=== PATIENT | female | born 1985 | race Caucasian/White ===

== ENCOUNTER → 2021-11-10 | Outpatient (CLI) | LOC: LABNPT 15:33 | PROVIDERS: ATTEND Family Medicine | DX: O09.33 Supervision of pregnancy with insufficient antenatal care, third trimester (principal); Z3A.37 37 weeks gestation of pregnancy | CPT/HCPCS: 87081 ==

== ENCOUNTER → 2021-11-16 | Outpatient (CLI) | LOC: LABNPT 15:52 | PROVIDERS: ATTEND Obstetrics & Gynecology | DX: Z36.85 Encounter for antenatal screening for Streptococcus B (principal) | CPT/HCPCS: 87081 ==

== ENCOUNTER 2021-12-11 18:08 | Outpatient (CLI) | payer SELFPAY ==
[~2021-12-11] VITALS: Ht 166 cm; Wt 65.9 kg
[2021-12-11] MEDS ORDERED: diphenhydrAMINE 50 MG/ML INJ (BENADRYL) IVP PRN (18:30)
[2021-12-11] MEDS ORDERED: D5 LR IV SOLUTION 1,000 ML IV SCH (18:30)
[2021-12-11] MEDS ORDERED: MINERAL OIL 30 ML TOP PRN (18:30)
[2021-12-11] MEDS ORDERED: LORazepam INJ 2 MG/ML (ATIVAN) VIAL IVP PRN (18:30)
[2021-12-11 19:11] LABS: BASOPHILS % (AUTO) 0 % (0-10); EOSINOPHILS % (AUTO) 0 % (0-10); HEMATOCRIT 33 % (35-52); HEMOGLOBIN 10.9 g/dL (11.5-16.0); LYMPHOCYTES # (AUTO) 1.7 10^3/uL (1.0-4.0); LYMPHOCYTES % (AUTO) 19 % (12-44); MEAN CORPUSCULAR HEMOGLOBIN 31 pg (25-34); MEAN CORPUSCULAR HGB CONC 34 g/dL (32-36); MEAN CORPUSCULAR VOLUME 92 fL (80-99); MEAN PLATELET VOLUME 11.8 fL (9.0-12.2); MONOCYTES # (AUTO) 0.7 10^3/uL (0.0-1.0); MONOCYTES % (AUTO) 8 % (0-12); NEUTROPHILS # (AUTO) 6.2 10^3/uL (1.8-7.8); NEUTROPHILS % (AUTO) 72 % (42-75); PLATELET COUNT 200 10^3/uL (130-400); WHITE BLOOD COUNT 8.7 10^3/uL (4.3-11.0)
[2021-12-11 19:28] LABS: BILIRUBIN,URINE NEGATIVE (NEGATIVE); CLARITY,URINE CLEAR; COLOR,URINE YELLOW; GLUCOSE, URINE (UA) NEGATIVE (NEGATIVE); KETONES,URINE NEGATIVE (NEGATIVE); LEUKOCYTE ESTERASE ,URINE 1+ (NEGATIVE); NITRITE,URINE NEGATIVE (NEGATIVE); PROTEIN,URINE NEGATIVE (NEGATIVE)
[2021-12-11 19:36] LABS: BACTERIA,URINE NEGATIVE /HPF
[2021-12-11 19:43] LABS: ALBUMIN 3.5 GM/DL (3.2-4.5); BILIRUBIN,TOTAL 0.3 MG/DL (0.1-1.0); CALCIUM 9.5 MG/DL (8.5-10.1); CREATININE SERUM 0.57 MG/DL (0.60-1.30); POTASSIUM 4.1 MMOL/L (3.6-5.0); TOTAL PROTEIN 6.6 GM/DL (6.4-8.2); URIC ACID 4.5 MG/DL (2.6-7.2)
[2021-12-11 20:15] VITALS: BP 120/75
[2021-12-11 20:39] LABS: URINE CREATININE FOR RATIO 37 MG/DL (30-125)
[2021-12-11 20:40] LABS: URINE PROTEIN FOR RATIO ONLY < 6 MG/DL (6-12)
[2021-12-11] MEDS ORDERED: CATHETER FLUSH 10 ML SYR IV SCH (22:00)
== END 2021-12-11 21:05 | disposition left against medical advice (07) ==
LOC: LDRP 18:08 → UNDOADMIN 18:08 → LDRP 18:08 → WSo 18:08 → UNDODISIN 21:05 → WSo 21:05 → EDSTATUS 12-17 09:29
PROVIDERS: ATTEND Obstetrics & Gynecology
DX: Z34.90 Encounter for supervision of normal pregnancy, unspecified, unspecified trimester (principal); Z3A.40 40 weeks gestation of pregnancy
CPT/HCPCS: 36415; 80053; 81000; 82570; 83615; 84156; 84443; 84550; 85025; 86703; 86762; 86765; 86780; 86850; 86900; 86901; 87340

== ENCOUNTER 2021-12-15 12:08 | Inpatient (IN) | payer SELFPAY ==
[2021-12-15] VITALS (7 sets, daily range): BP systolic 111–119; BP diastolic 61–74
[2021-12-15] MEDS ORDERED: D5 LR IV SOLUTION 1,000 ML IV SCH (12:15)
[2021-12-15 13:41] LABS: URINE CREATININE FOR RATIO 49 MG/DL (30-125)
[2021-12-15 13:42] LABS: URINE PROTEIN FOR RATIO ONLY < 6 MG/DL (6-12)
[2021-12-15 13:46] LABS: ALBUMIN 3.2 GM/DL (3.2-4.5)
[2021-12-15 13:47] LABS: POTASSIUM 3.6 MMOL/L (3.6-5.0)
[2021-12-15 13:48] LABS: CALCIUM 8.6 MG/DL (8.5-10.1)
[2021-12-15 13:49] LABS: TOTAL PROTEIN 6.1 GM/DL (6.4-8.2)
[2021-12-15 13:51] LABS: BILIRUBIN,TOTAL 0.3 MG/DL (0.1-1.0)
[2021-12-15 13:53] LABS: CREATININE SERUM 0.56 MG/DL (0.60-1.30)
[2021-12-15 13:56] LABS: URIC ACID 4.8 MG/DL (2.6-7.2)
[2021-12-15] MEDS ORDERED: CATHETER FLUSH 10 ML SYR IV SCH (14:00)
[2021-12-15 14:19] LABS: BASOPHILS % (AUTO) 0 % (0-10); EOSINOPHILS % (AUTO) 0 % (0-10); HEMATOCRIT 31 % (35-52); HEMOGLOBIN 10.2 g/dL (11.5-16.0); LYMPHOCYTES # (AUTO) 1.5 10^3/uL (1.0-4.0); LYMPHOCYTES % (AUTO) 21 % (12-44); MEAN CORPUSCULAR HEMOGLOBIN 31 pg (25-34); MEAN CORPUSCULAR HGB CONC 33 g/dL (32-36); MEAN CORPUSCULAR VOLUME 93 fL (80-99); MEAN PLATELET VOLUME 11.8 fL (9.0-12.2); MONOCYTES # (AUTO) 0.5 10^3/uL (0.0-1.0); MONOCYTES % (AUTO) 7 % (0-12); NEUTROPHILS # (AUTO) 5.2 10^3/uL (1.8-7.8); NEUTROPHILS % (AUTO) 71 % (42-75); PLATELET COUNT 189 10^3/uL (130-400); WHITE BLOOD COUNT 7.3 10^3/uL (4.3-11.0)
--- NOTE | 2022-01-01 14:06 | Physician Query-Final Dx ---
Clinic Account Progress/Dx Physician Query: Please give diagnosis Please include # of weeks gestation Date of Service AZALIAJulJan 01, 2022 14:06
--- NOTE | 2022-01-03 08:40 | Discharge Summary ---
Discharge Summary False labor at 40 weeks gestation Not applicable YAQUELIN VILLAFANA MD Jan 03, 2022 08:40
== END 2021-12-15 15:00 | disposition home or self-care (01) | DRG 833 ==
LOC: LDRP 12:08 → UNDOADMIN 12:08 → LDRP 12:27
PROVIDERS: ADMIT Obstetrics & Gynecology; ATTEND Obstetrics & Gynecology
DX: O47.1 False labor at or after 37 completed weeks of gestation (principal); Z3A.40 40 weeks gestation of pregnancy; Z28.310 Unvaccinated for COVID-19
CPT/HCPCS: 36415; 80053; 82570; 83615; 84156; 84550; 85025; 87088; 99213

== ENCOUNTER 2021-12-19 09:09 | Inpatient (IN) | payer SELFPAY ==
[~2021-12-19] VITALS: Ht 162.6 cm; Wt 66.5 kg
[2021-12-19] VITALS (46 sets, daily range): BP systolic 109–162; BP diastolic 58–94
[2021-12-19] MEDS ORDERED: D5 LR IV SOLUTION 1,000 ML IV SCH (09:45)
[2021-12-19] MEDS ORDERED: MINERAL OIL 30 ML TOP PRN (09:45)
[2021-12-19 10:14] LABS: BASOPHILS % (AUTO) 0 % (0-10); EOSINOPHILS # (AUTO) 0.1 10^3/uL (0.0-0.3); EOSINOPHILS % (AUTO) 1 % (0-10); HEMATOCRIT 31 % (35-52); HEMOGLOBIN 10.3 g/dL (11.5-16.0); LYMPHOCYTES # (AUTO) 1.3 10^3/uL (1.0-4.0); LYMPHOCYTES % (AUTO) 18 % (12-44); MEAN CORPUSCULAR HEMOGLOBIN 31 pg (25-34); MEAN CORPUSCULAR HGB CONC 33 g/dL (32-36); MEAN CORPUSCULAR VOLUME 92 fL (80-99); MEAN PLATELET VOLUME 11.8 fL (9.0-12.2); MONOCYTES # (AUTO) 0.5 10^3/uL (0.0-1.0); MONOCYTES % (AUTO) 7 % (0-12); NEUTROPHILS # (AUTO) 5.3 10^3/uL (1.8-7.8); NEUTROPHILS % (AUTO) 73 % (42-75); PLATELET COUNT 179 10^3/uL (130-400); WHITE BLOOD COUNT 7.3 10^3/uL (4.3-11.0)
[2021-12-19] MEDS ORDERED: OXYTOCIN PRE-MIX DRIP 500 ML IV SCH ×2 (10:45→12:45)
[2021-12-19] MEDS ORDERED: NALOXONE 0.4 MG/ML 1 ML (NARCAN) VIAL IV PRN (12:45)
[2021-12-19] MEDS ORDERED: WITCH HAZEL(TUCKS) 40 EA JAR TOP PRN (12:45)
[2021-12-19] MEDS ORDERED: BENZOCAINE/MENTHOL (DERMOPLAST) 56 ML CAN TP PRN (12:45)
[2021-12-19] MEDS ORDERED: TETANUS,DIPTH,PERTUSS P/F (BOOSTRIX) 0.5 ML VIAL IM ONE (12:45)
[2021-12-19 13:08] LABS: ALBUMIN 3.3 GM/DL (3.2-4.5)
[2021-12-19 13:09] LABS: POTASSIUM 4.2 MMOL/L (3.6-5.0)
[2021-12-19 13:10] LABS: CALCIUM 8.6 MG/DL (8.5-10.1)
[2021-12-19 13:11] LABS: TOTAL PROTEIN 5.8 GM/DL (6.4-8.2)
[2021-12-19 13:13] LABS: BILIRUBIN,TOTAL 0.2 MG/DL (0.1-1.0)
[2021-12-19 13:15] LABS: CREATININE SERUM 0.55 MG/DL (0.60-1.30)
[2021-12-19] MEDS ORDERED: CATHETER FLUSH 10 ML SYR IV SCH ×2 (14:00)
[2021-12-19] MEDS ORDERED: LIDOCAINE/EPI 2% 1:200,00 (XYLOCAINE) 10 ML VIAL ONE (15:20)
[2021-12-19] MEDS ORDERED: BUTORPHANOL INJ 2 MG/ML (STADOL) VIAL IV ONE (16:45)
[2021-12-19] MEDS ORDERED: BUTORPHANOL INJ 2 MG/ML (STADOL) VIAL ONE (16:52)
--- NOTE | 2021-12-19 22:14 | OB Labor & Delivery Record ---
Vag Delivery Note Vag Delivery Note Date of Delivery: 12/19/21 Preoperative Diagnosis: [id number] Eicher is a (26 /Para 1/0 , Gestational Age (wks)42with gestational hypertension, postdate Postoperative Diagnosis: Same Surgeon: TAYLOR POE Anesthesia: [none] Delivery Type: Findings: [] Viable male , please see nurses notes for APGARs and weight Lacerations: partial 3rd degree Intact placenta with circumvallate appearance and 3 vessel cord. Estimated Blood Loss: 350ml Complications: None Condition: Stable Description of Procedure: The patient is a 26 year old female who presented for IOL for the above diagnosis. She was admitted and informed consent was obtained. She was 4cm upon induction and had AROM revealing meconium stained fluid. Pitocin induction had been initiated and increased until having regular, painful contractions. She entered into active labor and progressed to stage two. She had one dose of stadol for pain management, declining epidural or pudendal nerve block. She pushed with contractions delivering a male infant in the OA position. Nose and mouth were suctioned and placed on mom's abdomen for delayed cord clamping. Cord blood was drawn and placenta was expressed with finding of complete circumvallate placenta. Uterine tone was achieved with massage and pitocin after delivery of the . A partial third degree laceration was repaired under local anesthesia. The torn external anal sphincter was lisbeth pproximated with two figure of eight 2O vicryl stitches. The perineal laceration had a vaginal extension wich was also repaired in the usual fashion with 2O vicryl suture. Mom and baby tolerated delivery well. She had normal to mildly elevated BPs during labor, denies JULIAN/RUQ pain/vision changes. Vitals - Labs Vital Signs - I&O Vital Signs Date Time Temp Pulse Resp B/P (MAP) Pulse Ox O2 Delivery O2 Flow Rate FiO2 12/19/21 19:02 76 18 151/77 (101) Room Air 12/19/21 18:48 81 18 148/88 (108) Room Air 12/19/21 18:30 37.0 82 18 144/81 (102) Room Air 12/19/21 18:15 74 18 135/81 (99) Room Air 12/19/21 18:00 72 18 149/88 (108) Room Air 12/19/21 17:45 71 18 162/94 (116) Room Air 12/19/21 17:30 68 16 129/70 (89) Room Air 12/19/21 17:15 68 18 120/69 (86) Room Air 12/19/21 17:00 75 18 109/59 (76) Room Air 12/19/21 16:45 78 20 115/67 (83) Room Air 12/19/21 16:30 36.8 75 18 119/67 (84) Room Air 12/19/21 16:00 72 18 112/75 (87) Room Air 12/19/21 15:45 75 18 135/85 (102) Room Air 12/19/21 15:30 72 18 134/81 (98) Room Air 12/19/21 15:15 75 18 129/88 (102) Room Air 12/19/21 14:30 36.9 74 18 146/84 (104) Room Air 12/19/21 13:45 69 18 123/81 (95) Room Air 12/19/21 13:15 71 18 131/74 (93) Room Air 12/19/21 13:00 65 18 116/73 (87) Room Air 12/19/21 12:45 82 16 115/63 (80) Room Air 12/19/21 12:30 79 16 136/74 (94) Room Air 12/19/21 12:15 80 18 122/64 (83) Room Air 12/19/21 12:00 37.0 89 18 124/73 (90) Room Air 12/19/21 11:05 100 16 114/77 (89) Room Air 12/19/21 10:35 83 18 118/71 (87) Room Air 12/19/21 10:04 101 18 123/86 (98) Room Air 12/19/21 09:32 37.0 89 16 114/79 (91) Room Air Labs Laboratory Tests 12/19/21 09:55: White Blood Count 7.3, Red Blood Count 3.37L, Hemoglobin 10.3L, Hematocrit 31L, Mean Corpuscular Volume 92, Mean Corpuscular Hemoglobin 31, Mean Corpuscular Hemoglobin Concent 33, Red Cell Distribution Width 12.9, Platelet Count 179, Mean Platelet Volume 11.8, Immature Granulocyte % (Auto) 1, Neutrophils (%) (Auto) 73, Lymphocytes (%) (Auto) 18, Monocytes (%) (Auto) 7, Eosinophils (%) (Auto) 1, Basophils (%) (Auto) 0, Neutrophils # (Auto) 5.3, Lymphocytes # (Auto) 1.3, Monocytes # (Auto) 0.5, Eosinophils # (Auto) 0.1, Basophils # (Auto) 0.0, Immature Granulocyte # (Auto) 0.1, Sodium Level 138, Potassium Level 4.2, Chloride Level 106, Carbon Dioxide Level 20L, Anion Gap 12, Blood Urea Nitrogen 12, Creatinine 0.55L, Estimat Glomerular Filtration Rate 130, BUN/Creatinine Ratio 22, Glucose Level 69L, Calcium Level 8.6, Corrected Calcium 9.2, Total Bilirubin 0.2, Aspartate Amino Transf (AST/SGOT) 14, Alanine Aminotransferase (ALT/SGPT) 16, Alkaline Phosphatase 129, Total Protein 5.8L, Albumin 3.3 TAYLOR POE MD December 19, 2021 22:14
[2021-12-19] MEDS ORDERED: IBUP-844 PO (22:15)
[2021-12-20 00:14] VITALS: BP 114/64
[2021-12-20 00:29] VITALS: BP 116/64
[2021-12-20] MEDS: IBUPROFEN 600 MG (MOTRIN) TAB PO SCH ×5 (00:59→22:14)
[2021-12-20] MEDS: ACETAMINOPHEN 500 MG TAB (TYLENOL) PO SCH ×3 (04:03→19:00)
[2021-12-20 04:07] VITALS: BP 104/73
[2021-12-20 05:44] LABS: BASOPHILS # (AUTO) 0.1 10^3/uL (0.0-0.1); BASOPHILS % (AUTO) 0 % (0-10); EOSINOPHILS # (AUTO) 0.1 10^3/uL (0.0-0.3); EOSINOPHILS % (AUTO) 0 % (0-10); HEMATOCRIT 27 % (35-52); HEMOGLOBIN 9.1 g/dL (11.5-16.0); LYMPHOCYTES # (AUTO) 1.1 10^3/uL (1.0-4.0); LYMPHOCYTES % (AUTO) 5 % (12-44); MEAN CORPUSCULAR HEMOGLOBIN 31 pg (25-34); MEAN CORPUSCULAR HGB CONC 34 g/dL (32-36); MEAN CORPUSCULAR VOLUME 91 fL (80-99); MEAN PLATELET VOLUME 11.4 fL (9.0-12.2); MONOCYTES # (AUTO) 1.3 10^3/uL (0.0-1.0); MONOCYTES % (AUTO) 6 % (0-12); NEUTROPHILS # (AUTO) 18.8 10^3/uL (1.8-7.8); NEUTROPHILS % (AUTO) 88 % (42-75); PLATELET COUNT 161 10^3/uL (130-400); WHITE BLOOD COUNT 21.4 10^3/uL (4.3-11.0)
[2021-12-20] MEDS ORDERED: LIDOCAINE/EPI 2% 1:200,00 (XYLOCAINE) 10 ML VIAL INJ PRN (05:45)
--- NOTE | 2021-12-20 06:41 | Postpartum Progress Note ---
Note Note Subjective: Patient states pain is well controlled tolerating p.o. lochia is reduced. Working on breast-feeding. No complaints of Objective: Vital signs are stable patient is afebrile no blood pressure greater than 140/90 General alert and x3 no acute distress resting comfortably in the bed Chest is nonlabored Abdomen fundus is firm nontender Extremities are with trace edema and slight tenderness bilateral calves without warmth or swelling Assessment: status post spontaneous vaginal delivery day 1 doing well Plan: #1 continue routine care with support 2. Exam of extremities is not concerning for DVT but seems consistent with where patient was grabbing and changing her leg position during pushing. We will continue to encourage ambulation and precautions reviewed 3. Patient desires dismissal home today. Preeclampsia precautions reviewed and routine follow-up in the clinic Vitals - Labs Vital Signs - I&O Vital Signs Date Time Temp Pulse Resp B/P (MAP) Pulse Ox O2 Delivery O2 Flow Rate FiO2 12/20/21 04:07 36.2 76 18 104/73 (83) 99 Room Air 12/20/21 00:29 74 18 116/64 (81) Room Air 12/20/21 00:14 82 18 114/64 (81) Room Air 12/19/21 23:59 80 18 112/62 (79) Room Air 12/19/21 23:44 82 18 114/62 (79) Room Air 12/19/21 23:29 80 18 115/64 (81) Room Air 12/19/21 23:14 70 18 111/59 (76) Room Air 12/19/21 22:59 74 18 110/60 (77) Room Air 12/19/21 22:44 96 18 123/68 (86) Room Air 12/19/21 22:29 37.2 95 18 110/58 (75) Room Air 12/19/21 22:14 89 18 123/83 (96) Room Air 12/19/21 21:45 125 18 125/86 (99) Room Air 12/19/21 21:38 97 18 127/84 (98) Room Air 12/19/21 21:30 71 18 141/74 (96) Room Air 12/19/21 21:15 71 18 130/78 (95) Room Air 12/19/21 21:00 74 18 148/72 (97) Room Air 12/19/21 20:45 74 18 141/66 (91) Room Air 12/19/21 20:30 83 18 134/65 (88) Room Air 12/19/21 20:15 84 18 121/59 (79) Room Air 12/19/21 20:00 36.9 73 18 137/82 (100) Room Air 12/19/21 19:45 76 18 135/73 (93) Room Air 12/19/21 19:30 72 18 136/65 (88) Room Air 12/19/21 19:15 12/19/21 19:02 76 18 151/77 (101) Room Air 12/19/21 18:48 81 18 148/88 (108) Room Air 12/19/21 18:30 37.0 82 18 144/81 (102) Room Air 12/19/21 18:15 74 18 135/81 (99) Room Air 12/19/21 18:00 72 18 149/88 (108) Room Air 12/19/21 17:45 71 18 162/94 (116) Room Air 12/19/21 17:30 68 16 129/70 (89) Room Air 12/19/21 17:15 68 18 120/69 (86) Room Air 12/19/21 17:00 75 18 109/59 (76) Room Air 12/19/21 16:45 78 20 115/67 (83) Room Air 12/19/21 16:30 36.8 75 18 119/67 (84) Room Air 12/19/21 16:00 72 18 112/75 (87) Room Air 12/19/21 15:45 75 18 135/85 (102) Room Air 12/19/21 15:30 72 18 134/81 (98) Room Air 12/19/21 15:15 75 18 129/88 (102) Room Air 12/19/21 14:30 36.9 74 18 146/84 (104) Room Air 12/19/21 13:45 69 18 123/81 (95) Room Air 12/19/21 13:15 71 18 131/74 (93) Room Air 12/19/21 13:00 65 18 116/73 (87) Room Air 12/19/21 12:45 82 16 115/63 (80) Room Air 12/19/21 12:30 79 16 136/74 (94) Room Air 12/19/21 12:15 80 18 122/64 (83) Room Air 12/19/21 12:00 37.0 89 18 124/73 (90) Room Air 12/19/21 11:05 100 16 114/77 (89) Room Air 12/19/21 10:35 83 18 118/71 (87) Room Air 12/19/21 10:04 101 18 123/86 (98) Room Air 12/19/21 09:32 37.0 89 16 114/79 (91) Room Air I & O 12/20/21 07:00 Intake Total 2000 ml Balance 2000 ml Labs Laboratory Tests 12/19/21 09:55: White Blood Count 7.3, Red Blood Count 3.37L, Hemoglobin 10.3L, Hematocrit 31L, Mean Corpuscular Volume 92, Mean Corpuscular Hemoglobin 31, Mean Corpuscular Hemoglobin Concent 33, Red Cell Distribution Width 12.9, Platelet Count 179, Mean Platelet Volume 11.8, Immature Granulocyte % (Auto) 1, Neutrophils (%) (Auto) 73, Lymphocytes (%) (Auto) 18, Monocytes (%) (Auto) 7, Eosinophils (%) (Auto) 1, Basophils (%) (Auto) 0, Neutrophils # (Auto) 5.3, Lymphocytes # (Auto) 1.3, Monocytes # (Auto) 0.5, Eosinophils # (Auto) 0.1, Basophils # (Auto) 0.0, Immature Granulocyte # (Auto) 0.1, Sodium Level 138, Potassium Level 4.2, Chloride Level 106, Carbon Dioxide Level 20L, Anion Gap 12, Blood Urea Nitrogen 12, Creatinine 0.55L, Estimat Glomerular Filtration Rate 130, BUN/Creatinine Ratio 22, Glucose Level 69L, Calcium Level 8.6, Corrected Calcium 9.2, Total Bilirubin 0.2, Aspartate Amino Transf (AST/SGOT) 14, Alanine Aminotransferase (ALT/SGPT) 16, Alkaline Phosphatase 129, Total Protein 5.8L, Albumin 3.3 12/20/21 05:27: White Blood Count 21.4H, Red Blood Count 2.91L, Hemoglobin 9.1L, Hematocrit 27L, Mean Corpuscular Volume 91, Mean Corpuscular Hemoglobin 31, Mean Corpuscular Hemoglobin Concent 34, Red Cell Distribution Width 12.9, Platelet Count 161, Mean Platelet Volume 11.4, Immature Granulocyte % (Auto) 1, Neutrophils (%) (Auto) 88H, Lymphocytes (%) (Auto) 5L, Monocytes (%) (Auto) 6, Eosinophils (%) (Auto) 0, Basophils (%) (Auto) 0, Neutrophils # (Auto) 18.8H, Lymphocytes # (Aut o) 1.1, Monocytes # (Auto) 1.3H, Eosinophils # (Auto) 0.1, Basophils # (Auto) 0.1, Immature Granulocyte # (Auto) 0.1 TAYLOR POE MD Dec 20, 2021 06:41
[2021-12-20 10:25] VITALS: BP 113/65
[2021-12-20 16:14] VITALS: BP 116/60
[2021-12-20] MEDS: DOCUSATE SODIUM 100 MG (COLACE) CAP PO SCH ×3 (19:00→22:52)
[2021-12-20 22:13] VITALS: BP 107/59
== END 2021-12-20 22:53 | disposition home or self-care (01) | DRG 768 ==
LOC: LDRP 09:09
PROVIDERS: ADMIT Obstetrics & Gynecology; ATTEND Obstetrics & Gynecology
PROC: 10E0XZZ Delivery of Products of Conception, External Approach (ICD-10-PCS; principal; 2021-12-19)
PROC: 0DQR0ZZ Repair Anal Sphincter, Open Approach (ICD-10-PCS; 2021-12-19)
PROC: 0KQM0ZZ Repair Perineum Muscle, Open Approach (ICD-10-PCS; 2021-12-19)
PROC: 10907ZC Drainage of Amniotic Fluid, Therapeutic from Products of Conception, Via Natural or Artificial Opening (ICD-10-PCS; 2021-12-19)
DX: O48.0 Post-term pregnancy (principal); Z37.0 Single live birth; O70.20 Third degree perineal laceration during delivery, unspecified; Z3A.41 41 weeks gestation of pregnancy; O13.4 Gestational [pregnancy-induced] hypertension without significant proteinuria, complicating childbirth; O71.89 Other specified obstetric trauma; O77.0 Labor and delivery complicated by meconium in amniotic fluid
CPT/HCPCS: 36415; 80053; 85025; 86850; 86900; 86901